=== PATIENT | male | born 1980 | race Two or more races ===

== ENCOUNTER 2017-04-21 04:05 | Emergency (ER) | payer SELFPAY ==
[~2017-04-21] VITALS: Ht 170.2 cm; Wt 68.0 kg
[2017-04-21] MEDS ORDERED: Haloperidol 5mg/ml Inj IM ONE (04:30)
[2017-04-21] MEDS ORDERED: DiphenhydrAMINE 50mg/ml Inj IM ONE (04:45)
--- NOTE | 2017-04-21 04:46 | Emergency Room Report ---
History of Present Illness General Chief Complaint: Behavioral Complaint Source: Patient, EMS Present Illness HPI Is a 36 show male with a psychiatric history. He presents with an altered mental status and bizarre behavior. He went to a nearby [employer] restaurant and restart grabbing stuff and eating it. He was agitated. They called 911. He was spinning and screaming. They put in restraints and brought him here. Patient denies any drugs or alcohol. Denies any other complaint. No trauma. Allergies: Coded Allergies: UNABLE TO ASSESS (Unverified , 04/21/17) Patient History Past Medical History: see triage record, old chart reviewed, psych hx Past Surgical History: unable to obtain, other Family History: unable to obtain Immunizations: other Reviewed Nursing Documentation: PMH: Agreed, PSxH: Agreed Review of Systems ENT: Denies: sore throat Cardiovascular: Denies: chest pain, palpitations Gastrointestinal/Abdominal: Denies: nausea, vomiting, diarrhea Musculoskeletal: Denies: back problems Skin: Denies: rash Neurological: Denies: MARQUIS, seizures All Other Systems: negative except mentioned in HPI Physical Exam Sp02 EP Interpretation: reviewed, normal General Appearance: alert/responsive, no apparent distress, non-toxic Head: normocephalic, atraumatic Eyes: PERRL, EOMI ENT: oropharynx normal Neck: supple/symm/no masses Respiratory: effort normal, no rhonchi, no wheezing Cardiovascular: no murmur, gallop, rub Gastrointestinal: non-tender, no mass, non-distended, no rebound/guarding, normal bowel sounds Neurologic: oriented x3, sensory intact, motor strength/tone normal Psychiatric: other - Agitated And screaming. Skin: no rash, normal palpation Medical Decision Making Diagnostic Impression: Primary Impression: Psychosis Qualified Codes: F23 - Brief psychotic disorder ER Course Patient presents with acute psychosis. Better now. He said for several hours and now back to baseline. He has IV shin and EKGs from previous hospitalization or ER visit. We'll discharge home. Status: improved Disposition: HOME, SELF-CARE Condition: Stable Additional Instructions: abstain from drugs and alcohol. Followup with mental health within a week. Return if symptom worsen. USAMA GERARDO M.D. Apr 21, 2017 04:46
[2017-04-21 09:55] VITALS: BP 118/74
== END 2017-04-21 09:55 | disposition home or self-care (01) ==
LOC: EDBD 04:05 → EMR 04:25
DX: F29 Unspecified psychosis not due to a substance or known physiological condition (principal)
CPT/HCPCS: 96372; 99284; J1200; J1630